=== PATIENT | male | born 1955 | race Caucasian/White ===

== ENCOUNTER 2017-03-17 10:40 | Emergency (ER) | payer BC ==
[~2017-03-17] VITALS: Ht 193 cm; Wt 121.0 kg
[~2017-03-17 10:40] MED LIST: ACCUPRIL20 MG PO; BENTYL20 MG PO; COLACE100 MG PO; COMPAZINE10 MG PO; FLAGYL500 MG PO; FLOMAX0.4 MG PO; HYDROCHLOROTHIA25 MG PO; K-DUR20 MEQ PO; LORTAB 5-325 M1 EACH PO; NASAL SPRAY30 M4 BOTH NARES; NORCO 5/3251 TABLET PO; OXYCODONE HCL5 MG PO; POTASSIUM CHLO10 ME3 PO; QUINAPRIL HCL40 MG PO; SERTRALINE HCL25 MG PO; ZOLOFT50 MG PO
[2017-03-17 11:43] LABS: HEMATOCRIT 46.5 % (38.0-50.0); MCH 31.8 PG (29.0-34.0); MCHC 36.1 G/DL (30.0-36.0); MEAN PLAT.VOLUME 10.3 uM^3 (9.0-12.4); PLATELET COUNT 254 K/uL (156-360); RBC DIS.WIDTH-CV 12.5 % (11.8-14.6); RED BLOOD COUNT 5.28 M/uL (4.00-5.50); WHITE BLOOD COUNT 12.8 K/uL (4.1-10.2)
[2017-03-17 11:44] LABS: MCV 88.1 FL (86-99)
[2017-03-17 11:55] LABS: CHLORIDE 101 mEq/L (99-109); POTASSIUM 3.8 mEq/L (3.7-5.4); SODIUM 141 mEq/L (136-147)
[2017-03-17 11:57] LABS: GLUCOSE 108 mg/dL (70-99)
[2017-03-17 11:58] LABS: ANION GAP 11 MEQ/L (2-14)
[2017-03-17 11:59] LABS: TOTAL BILIRUBIN 0.8 mg/dL (0.0-1.0)
[2017-03-17 12:00] LABS: ALKALINE PHOSPHATASE 63 IU/L (3-129)
[2017-03-17 12:01] LABS: GFR ESTIMATE (CALCULATED) 55 mL/min/
[2017-03-17 12:02] LABS: UREA NITROGEN (BUN) 17 mg/dL (9-23)
[2017-03-17 14:49] LABS: ADD MIUA? YES; BILIRUBIN NEGATIVE; BLOOD NEGATIVE; COLOR YELLOW ((YELLOW)); GLUCOSE (STRIP) NEGATIVE; KETONES NEGATIVE; LEUKOCYTES NEGATIVE; NITRITE NEGATIVE; PROTEIN (STRIP) 30; SPECIFIC GRAVITY 1.021 (1.000-1.030); UROBILINOGEN 0.2 MG/DL (0.2-1.0)
[2017-03-17 14:57] LABS: BACTERIA RARE /HPF; EPITHELIAL CELLS RARE /HPF; MUCUS 4+ /LPF; RED BLOOD CELLS 0-5 /HPF (0-5); UCUL ADDED? NO; WHITE BLOOD CELLS 0-5 /HPF (0-5)
[2017-03-17 15:10] LABS: INTERNAL CONTROL VALID? YES
[2017-03-17 15:43] LABS: C DIFF TOXIN NEGATIVE (NEGATIVE)
[2017-03-17 16:01] LABS: PROBE CHECK PASS; SPECIMEN PROCESSING CONTROL PASS
[2017-03-17] MEDS ORDERED: ZOFRAN4 MG PO (17:02)
[2017-03-17] MEDS ORDERED: BENTYL20 MG PO (17:02)
[2017-03-17] MEDS ORDERED: IMODIUM A-D2 M2 PO (17:02)
[2017-03-17 17:17] VITALS: BP 139/86
== END 2017-03-17 17:21 | disposition home or self-care (01) ==
LOC: EME 10:40
PROVIDERS: Emergency Medicine
DX: R19.7 Diarrhea, unspecified (principal); E86.0 Dehydration; I10 Essential (primary) hypertension; K21.9 Gastro-esophageal reflux disease without esophagitis; Z87.891 Personal history of nicotine dependence
CPT/HCPCS: 80053; 81003; 83630; 85027; 87493; 99281; 99285; J1885; J7030